=== PATIENT | male | born 1990 | race African-American/Black ===

== ENCOUNTER 2016-08-13 23:41 | Emergency (ER) | payer OTHER ==
[~2016-08-13] VITALS: Ht 172.7 cm; Wt 74.8 kg
[2016-08-13 23:48] VITALS: BP 150/80
--- NOTE | 2016-08-14 00:09 | NUR ---
PT VICENTA BARKER TO ER BED 4
--- NOTE | 2016-08-14 00:09 | NUR ---
Joey dee in [facility] - 08/14/16 at 0010 by RADHA PT ANDREW [facility]. TAKEN TO BED 4
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
--- NOTE | 2016-08-14 00:30 | NUR ---
PT TAKEN TO CT
--- NOTE | 2016-08-14 00:52 | NUR ---
PT RETURN FROM CT
--- NOTE | 2016-08-14 01:05 | NUR ---
Dr. Acosta evaluating patient at bedside.
[2016-08-14] MEDS ORDERED: NACL 0.9% 1,000 ML IV ONE (01:15)
[2016-08-14] MEDS ORDERED: KETOROLAC 60 MG/2 ML VIAL IM ONE (01:15)
--- NOTE | 2016-08-14 01:36 | NUR ---
PT BEEN INFORMED TO PROVIDE URINE, PT STATES HE HASNT HAD ANYTHING TO DRINK. PT HAS BEEN PROVIDED WATER AND HAS 1L OF NACL RUNNING BOLUS.
[2016-08-14 02:01] LABS: ACETAMINOPHEN < 0.5 ug/ml (10-30); ALANINE AMINOTRANSFERASE 24 U/L (16-63); ALBUMIN 3.8 g/dL (3.4-5.0); ALCOHOL, BLOOD < 3 mg/dL (<3); ALKALINE PHOSPHATASE 47 U/L (46-116); ANION GAP 12.5 (8-16); ASPARTATE AMINOTRANSFERASE 24 U/L (15-37); CALCIUM 8.1 mg/dL (8.5-10.1); CARBON DIOXIDE 25.6 mmol/L (21-32); CHLORIDE 108 mmol/L (98-107); CREATININE 1.2 mg/dL (0.7-1.3); GFR ARICAN-AMERICAN 93 mL/min (>90); GFR NON ARICAN-AMERICAN 77 mL/min (>90); GLUCOSE 96 mg/dL (74-106); POTASSIUM 4.1 mmol/L (3.5-5.1); SALICYLATE < 2.8 mg/dL (2.8-20.0); SODIUM SERUM 142 mmol/L (136-145); TOTAL BILIRUBIN 0.4 mg/dL (0.0-1.0); TOTAL PROTEIN, SERUM 6.8 g/dL (6.4-8.2); UREA NITROGEN, BLOOD 13 mg/dL (7-18)
[2016-08-14 02:16] LABS: HEMATOCRIT 41.5 % (36-52); HEMOGLOBIN 13.6 g/dL (12.0-18.0); MEAN CORPUSCULAR HEMOGLOBIN 30 pg (27-31); MEAN CORPUSCULAR HGB CONC 33 g/dL (33-37); MEAN CORPUSCULAR VOLUME 90 fL (80-94); PLATELET COUNT (AUTO) 114 K/uL (140-450); RED BLOOD CELL COUNT(AUTO) 4.62 MIL/uL (4.20-6.10); RED CELL DISTRIBUTION WIDTH 11.9 % (11.6-13.7)
[2016-08-14 02:24] LABS: LYMPHOCYTES % (MANUAL) 5 % (20-46); MONOCYTES % (MANUAL) 7 % (5-12); NEUTROPHILS % (MANUAL) 88 (43-65); WHITE BLOOD COUNT (AUTO) 14.6 K/uL (4.8-10.8)
--- NOTE | 2016-08-14 02:50 | NUR ---
IV removed, catheter intact and site benign. Applied folded 4x4 gauze and tape to stop bleeding.
--- NOTE | 2016-08-14 02:53 | NUR ---
Patient discharged with v/s stable. Written and verbal after care instructions given and explained. Patient alert, oriented and verbalized understanding of instructions. Ambulatory with steady gait. All questions addressed prior to discharge. ID band removed. Patient advised to follow up with PMD. Rx of ULTRAM 50MG given. Patient educated on indication of medication including possible reaction and side effects. Opportunity to ask questions provided and answered.
[2016-08-14 02:54] VITALS: BP 137/82
== END 2016-08-14 02:53 | disposition home or self-care (01) ==
LOC: MED 23:41
DX: S02.5XXA Fracture of tooth (traumatic), initial encounter for closed fracture (principal); S00.511A Abrasion of lip, initial encounter; F12.10 Cannabis abuse, uncomplicated; W18.30XA Fall on same level, unspecified, initial encounter; Y93.89 Activity, other specified; Y92.89 Other specified places as the place of occurrence of the external cause; Y99.8 Other external cause status
CPT/HCPCS: 36415; 70450; 70486; 72125; 80053; 85025; 90715; 96361; 96372; 96374; 99285; G0480; G0482; J1885; J7030